=== PATIENT | female | born 2000 | race Two or more races ===

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

== ENCOUNTER → 2022-06-05 | Emergency (ER) | payer OTHER ==
[~2022-06-05] VITALS: Ht 157.5 cm; Wt 74.8 kg
[~2022-06-05] MED LIST changes: +PROMETHAZINE W118 ML PO; +TESSALON PERLE100 M1 PO; +ZITHROMAX500 MG PO
== END | disposition left against medical advice (07) ==
LOC: ER 22:00
DX: U07.1 COVID-19 (principal)